=== PATIENT | male | born 1985 | race Caucasian/White ===

== ENCOUNTER 2017-04-11 17:49 | Emergency (ER) | payer SELFPAY ==
[2017-04-11 18:04] VITALS: BP 127/77; PULSE 95; RESP 16; TEMP 97.8; O2SAT 100
--- NOTE | 2017-04-11 18:22 | ED PDOC ---
HPI: Back Time Seen by Provider: 04/11/17 18:08 Chief Complaint (Nursing): Back Pain Chief Complaint (Provider): Back Pain History Per: Patient History/Exam Limitations: no limitations Onset/Duration Of Symptoms: Intermittent Episodes (2 months ) Quality Of Discomfort: "Pain" Additional Complaint(s): Tammie Armando is a 31 y/o male presenting to the ER on 04/11/2017 with complaints of intermittent lower back pain that has been ongoing for two months. Patient reports pain worsened today as he was playing soccer, prompting him to seek medical evaluation. He notes he tried using ice as a relief measure in the past. Past Medical History Reviewed: Historical Data, Nursing Documentation, Vital Signs Vital Signs: Last Vital Signs Temp 97.8 F 04/11/17 18:03 Pulse 95 H 04/11/17 18:03 Resp 16 04/11/17 18:03 BP 127/77 04/11/17 18:03 Pulse Ox 100 04/11/17 18:03 - Medical History PMH: No Chronic Diseases - Surgical History Surgical History: No Surg Hx - Family History Family History: States: Unknown Family Hx - Social History Current smoker - smoking cessation education provided: Yes Alcohol: None Drugs: Denies - Home Medications Home Medications: Ambulatory Orders Medication Instructions Recorded Cyclobenzaprine [Cyclobenzaprine 10 mg PO Q8H #20 tab 04/11/17 HCl] Ibuprofen [Motrin Tab] 800 mg PO Q6H PRN #20 tab 04/11/17 - Allergies Allergies/Adverse Reactions: Allergies Allergy/AdvReac Type Severity Reaction Status Date / Time No Known Allergies Allergy Verified 04/11/17 18:21 Review of Systems ROS Statement: Except As Marked, All Systems Reviewed And Found Negative Genitourinary Male: Negative for: Incontinence Musculoskeletal: Positive for: Back Pain Neurological: Negative for: Weakness, Numbness Physical Exam - Reviewed Nursing Documentation Reviewed: Yes Vital Signs Reviewed: Yes - Physical Exam Appears: Positive for: Non-toxic, No Acute Distress Head Exam: Positive for: ATRAUMATIC, NORMOCEPHALIC Skin: Positive for: Normal Color. Negative for: Rash Eye Exam: Positive for: Normal appearance Neck: Positive for: Normal Cardiovascular/Chest: Positive for: Regular Rate, Rhythm. Negative for: Murmur Respiratory: Positive for: Normal Breath Sounds. Negative for: Respiratory Distress Back: Positive for: Normal Inspection, Other ((+) lumbar tenderness). Negative for: L CVA Tenderness, R CVA Tenderness Extremity: Positive for: Normal ROM. Negative for: Deformity, Swelling Neurologic/Psych: Positive for: Alert, Oriented. Negative for: Motor/Sensory Deficits - ECG O2 Sat by Pulse Oximetry: 100 Medical Decision Making Medical Decision Makin:08 Initial Impression- 31 y/o male with back pain Initial Plan- * XR LS Spine * Flexeril 10 mg PO * Ibuprofen 600 mg PO x-ray without acute fracture or dislocation Documented by Shan Lambert, acting as a scribe for Faye Shaw PA-C All medical record entries made by the Scribe were at my direction and personally dictated by me. I have reviewed the chart and agree that the record accurately reflects my personal performance of the history, physical exam, medical decision making, and the department course for this patient. I have also personally directed, reviewed, and agree with the discharge instructions and disposition. Disposition - Clinical Impression Clinical Impression: Back pain - Patient ED Disposition Is Patient to be Admitted: No - Disposition Referrals: Andrew Reaves MD [Staff Provider] - [facility] [Outside] [facility] [Outside] Disposition: Routine/Home Disposition Time: 19:02 Condition: GOOD Prescriptions: Cyclobenzaprine [Cyclobenzaprine HCl] 10 mg PO Q8H #20 tab Ibuprofen [Motrin Tab] 800 mg PO Q6H PRN #20 tab PRN Reason: Pain Instructions: Acute Low Back Pain (ED)
--- NOTE | 2017-04-11 20:18 | RAD ---
PROCEDURE: Radiographs of the Lumbar Spine. HISTORY: back pain acute on chronic COMPARISON: No prior. FINDINGS: BONES: Vertebral body heights are maintained. Lumbar lordosis maintained. DISC SPACES: Disc space heights are preserved. OTHER FINDINGS: None. IMPRESSION: No lumbar spine fracture or subluxation identified.
== END 2017-04-11 19:07 | disposition home or self-care (01) ==
LOC: H.ER 17:49
DX: M54.5 Low back pain (principal)